=== PATIENT | male | born 1965 | race Caucasian/White ===

== ENCOUNTER 2021-04-05 16:48 | Inpatient (IN) | payer OTHER ==
[2021-04-05 18:44] VITALS: BMI 32.5
[2021-04-05] MEDS ORDERED: hydrOXYzine PAMOATE 25 MG CAPSULE (FP) PO PRN (20:32)
[2021-04-05] MEDS ORDERED: MENTHOL/PHENOL 1 EACH UD MM PRN (20:32)
[2021-04-05] MEDS ORDERED: ONDANSETRON *ODT* 4 MG TABLET SL PRN (20:32)
[2021-04-05] MEDS ORDERED: MAGNESIUM CITRATE 300 ML BOTTLE PO PRN (20:32)
[2021-04-05] MEDS ORDERED: IBUPROFEN 400 MG TABLET (FP) PO PRN (20:32)
[2021-04-05] MEDS ORDERED: BISMUTH SUBSALICYLATE 524 MG/30 ML PO PRN (20:32)
[2021-04-05] MEDS ORDERED: MAG HYDROX/AL HYDROX/SIMETH 30 ML UNIT-DOSE CUP PO PRN (20:32)
[2021-04-05] MEDS ORDERED: ACETAMINOPHEN 325 MG TABLET (FP) PO PRN ×2 (20:32)
[2021-04-05] MEDS ORDERED: METHOCARBAMOL 500 MG TABLET PO PRN (20:32)
[2021-04-05] MEDS ORDERED: MAGNESIUM HYDROX 2400MG/30ML ORAL SUSPENSION 30 ML CUP PO PRN (20:32)
[2021-04-05] MEDS ORDERED: diazePAM 5 MG TABLET PO PRN (20:34)
[2021-04-05] MEDS: MELATONIN 5 MG TABLETS PO SCH (21:51)
[2021-04-05] MEDS: THIAMINE HCL 100 MG TABLET (FP) PO SCH (21:51)
[2021-04-05] MEDS: diazePAM 5 MG TABLET PO SCH (21:59)
[2021-04-05] MEDS ORDERED: MELATONIN 1 MG TABLET PO SCH (22:00)
[2021-04-06] MEDS: diazePAM 5 MG TABLET PO SCH ×4 (05:24→22:20)
[2021-04-06] MEDS: amLODIPine BESYLATE 5 MG TABLET (FP) PO SCH (10:18)
[2021-04-06] MEDS: PRENATAL VITAMINS W/ FOLIC ACID TABLET (FP) PO SCH (10:18)
[2021-04-06] MEDS: LISINOPRIL 20 MG TABLET PO SCH (10:19)
[2021-04-06] MEDS: HYDROCHLOROTHIAZIDE 12.5 MG CAPSULE (FP) PO SCH (10:19)
[2021-04-06 11:32] LABS: HEMATOCRIT 50.9 % (35.4-49); HEMOGLOBIN 17.3 GM/dL (11.7-16.9); MCH 32.1 pg (25.7-33.7); MEAN CELL VOLUME 94.3 fl (80-96); MEAN PLT VOLUME 8.1 fl (7.5-11.1); PLATELET COUNT 174 10^3/uL (134-434); RDW 13.8 % (11.9-15.9)
[2021-04-06 11:48] LABS: ALBUMIN 3.7 g/dl (3.4-5.0); BLOOD UREA NITROGEN 12.4 mg/dL (7-18)
[2021-04-06 11:49] LABS: CALCIUM 8.8 mg/dL (8.5-10.1)
[2021-04-06 11:50] LABS: TOT PROT 6.9 g/dl (6.4-8.2)
[2021-04-06] MEDS: MELATONIN 5 MG TABLETS PO SCH (22:19)
[2021-04-06] MEDS: THIAMINE HCL 100 MG TABLET (FP) PO SCH (22:19)
[2021-04-07] MEDS: diazePAM 5 MG TABLET PO SCH ×3 (05:19→22:04)
[2021-04-07] MEDS ORDERED: DULoxetine HCL 20 MG CAPSULE.DR PO SCH (10:00)
[2021-04-07] MEDS: PRENATAL VITAMINS W/ FOLIC ACID TABLET (FP) PO SCH (10:22)
[2021-04-07] MEDS: HYDROCHLOROTHIAZIDE 12.5 MG CAPSULE (FP) PO SCH (10:22)
[2021-04-07] MEDS: LISINOPRIL 20 MG TABLET PO SCH (10:22)
[2021-04-07] MEDS: amLODIPine BESYLATE 5 MG TABLET (FP) PO SCH (10:22)
[2021-04-07 10:59] LABS: CALCIUM 8.5 mg/dL (8.5-10.1)
[2021-04-07] MEDS: MELATONIN 5 MG TABLETS PO SCH (22:04)
[2021-04-07] MEDS: THIAMINE HCL 100 MG TABLET (FP) PO SCH (22:05)
[2021-04-08] MEDS ORDERED: diazePAM 5 MG TABLET PO SCH (06:00)
[2021-04-08 06:17] VITALS: BP 125/54; PULSE 57; TEMP 97.1
[2021-04-09] MEDS ORDERED: diazePAM 5 MG TABLET PO ONE (06:00)
== END 2021-04-08 09:06 | disposition home or self-care (01) | DRG 775 ==
LOC: YASAS 16:48 → Y3N 18:42
PROVIDERS: ADMIT Allergy & Immunology; ATTEND Allergy & Immunology
PROC: HZ2ZZZZ Detoxification Services for Substance Abuse Treatment (ICD-10-PCS; principal; 2021-04-05)
DX: F10.230 Alcohol dependence with withdrawal, uncomplicated (principal); F13.10 Sedative, hypnotic or anxiolytic abuse, uncomplicated; F12.10 Cannabis abuse, uncomplicated; F17.210 Nicotine dependence, cigarettes, uncomplicated; F19.24 Other psychoactive substance dependence with psychoactive substance-induced mood disorder; F41.8 Other specified anxiety disorders; F32.9 Major depressive disorder, single episode, unspecified; E87.1 Hypo-osmolality and hyponatremia; I10 Essential (primary) hypertension; K57.32 Diverticulitis of large intestine without perforation or abscess without bleeding; G47.00 Insomnia, unspecified; R74.01 Elevation of levels of liver transaminase levels; E66.9 Obesity, unspecified; Z68.32 Body mass index [BMI] 32.0-32.9, adult; Z56.0 Unemployment, unspecified; Z59.0 Homelessness
CPT/HCPCS: 36415; 80048; 80053; 82247; 84450; 84460; 85027; 86780; 93005; 93010; C9803; U0003; U0005